=== PATIENT | male | born 1960 | race Caucasian/White ===

== ENCOUNTER 2016-12-14 15:13 | Emergency (ER) | payer OTHER ==
[~2016-12-14] VITALS: Ht 170.2 cm; Wt 81.3 kg
[~2016-12-14 15:13] MED LIST: ADULT LOW DOSE81 M1 PO; ADVIL200 MG PO; AMLODIPINE BESY10 MG PO; APRESOLINE10 MG PO; APRESOLINE25 MG PO; ASPIR 8181 M1 PO; ASPIR-LOW81 MG PO; Aspirin E.C. PO; BAYER CHEWABLE81 MG PO; CARVEDILOL12.5 MG PO; CARVEDILOL25 MG PO; CEFTIN500 MG PO; CENTRUM SILVER1 EAC3 PO; CLEOCIN300 MG PO; CLOPIDOGREL75 MG PO; COREG12.5 M1 PO; COREG25 M1 PO; Coreg PO; DAILY VALUE1 EACH PO; DYNAPEN500 MG PO; ENOXAPARIN40 MG/0.4 SC; FERROUS SULFAT325 MG PO; FLAGYL500 MG PO; FLOMAX0.4 MG PO; FUROSEMIDE40 MG PO; GLIPIZIDE10 MG PO; GLIPIZIDE5 MG PO; GLUCOTROL5 MG PO; Glucotrol PO; Glucotrol XL PO; HEPARIN SO5000 UNITS SC; HYDRALAZINE HCL25 MG PO; IMDUR30 MG PO; IMDUR60 MG PO; IMODIUM MS REL1 EACH PO; IRON325 MG PO; ISOSORBIDE MONO30 MG PO; Imdur PO; K-DUR20 MEQ PO; K-Dur PO; KETOCONAZOLE60 GM TP; KLOR-CON 88 MEQ PO; LANTUS 3 M100 UNITS1 SC; LASIX40 MG PO; LEVAQUIN250 MG PO; LEVEMIR FL100 UNIT/1 SC; LEVEMIR FL100 UNITS/ SC; LEVEMIR100 UNIT/2 SC; LISINOPRIL20 MG PO; LISINOPRIL40 MG PO; LISINOPRIL5 MG PO; LO-DOSE ASPIRIN81 M1 PO; LOMOTIL TABLET1 EACH PO; LOPERAMIDE2 MG PO; Lasix PO; Lomotil,Lonox PO; METOCLOPRAMIDE10 MG PO; MULTIVITAMIN1 EAC2 PO; NORVASC10 MG PO; NOVOLOG 10100 UNITS/ SC; NOVOLOG PE100 UNITS/ SC; PANTOPRAZOLE SO40 MG PO; PLAVIX75 MG PO; POTASSIUM-9999 MG PO; PRAVACHOL40 MG PO; PRAVASTATIN SOD40 MG PO; PRESERVISION T1 EACH PO; PRILOSEC20 MG PO; PROTONIX40 MG PO; Protonix PO; ROCEPHIN1 GM/50 ML IV; ROXICODONE5 MG PO; SENNA-TIME S T1 EACH PO; SILVADENE20 GM TP; SODIUM BICARBO325 MG PO; ST. JOSEPH ASPI81 MG PO; TAMSULOSIN HCL0.4 MG PO; TYLENOL REGULA325 MG PO; Tylenol Regular Stre PO; VITAMIN D-3 401 EACH PO; VITAMIN D3400 UNI1 PO; VITAMIN D400 UNI1 PO; VITAMIN D400 UNIT PO; ZESTRIL2.5 MG PO; ZESTRIL5 MG PO; Zestril,Prinivil PO
[2016-12-14 16:20] LABS: HEMATOCRIT 37.2 % (38.0-50.0); MCH 30.7 PG (29.0-34.0); MCHC 33.9 G/DL (30.0-36.0); MCV 90.5 FL (86-99); MEAN PLAT.VOLUME 9.7 uM^3 (9.0-12.4); PLATELET COUNT 217 K/uL (156-360); RBC DIS.WIDTH-SD 44.8 % (39-53); RED BLOOD COUNT 4.11 M/uL (4.00-5.50); WHITE BLOOD COUNT 5.2 K/uL (4.1-10.2)
[2016-12-14 16:36] LABS: CHLORIDE 109 mEq/L (99-109); POTASSIUM 3.3 mEq/L (3.7-5.4); SODIUM 142 mEq/L (136-147)
[2016-12-14 16:38] LABS: GLUCOSE 141 mg/dL (70-99)
[2016-12-14 16:39] LABS: ANION GAP 13 MEQ/L (2-14)
[2016-12-14 16:40] LABS: TOTAL BILIRUBIN 0.7 mg/dL (0.0-1.0)
[2016-12-14 16:41] LABS: ALKALINE PHOSPHATASE 72 IU/L (3-129)
[2016-12-14 16:42] LABS: GFR ESTIMATE (CALCULATED) > 59 mL/min/
[2016-12-14 16:43] LABS: UREA NITROGEN (BUN) 16 mg/dL (9-23)
[2016-12-14 16:45] LABS: LIPASE 14 U/L (1.0-51.0)
[2016-12-14 17:05] LABS: ADD MIUA? YES; BILIRUBIN NEGATIVE; BLOOD NEGATIVE; COLOR YELLOW ((YELLOW)); GLUCOSE (STRIP) NEGATIVE; KETONES NEGATIVE; LEUKOCYTES NEGATIVE; NITRITE NEGATIVE; PROTEIN (STRIP) 30; SPECIFIC GRAVITY 1.026 (1.000-1.030)
[2016-12-14 18:13] LABS: BACTERIA NONE SEEN; EPITHELIAL CELLS RARE; MUCUS NONE SEEN; RED BLOOD CELLS NONE SEEN /HPF (0-5); UCUL ADDED? NO; WHITE BLOOD CELLS NONE SEEN /HPF (0-5)
[2016-12-14 18:14] LABS: CASTS NONE SEEN /LPF; CRYSTALS PRESENT; URIC ACID CRYSTALS 1+
[2016-12-14] MEDS ORDERED: CIPRO500 MG PO (21:38)
[2016-12-14] MEDS ORDERED: FLAGYL500 MG PO (21:38)
[2016-12-14] MEDS ORDERED: ZOFRAN ODT4 MG PO (21:38)
[2016-12-14] MEDS ORDERED: PERCOCET 5/31 TABLET PO (21:38)
[2016-12-14 21:53] VITALS: BP 157/70
== END 2016-12-14 21:53 | disposition home or self-care (01) ==
LOC: RME 15:13 → EME 15:13 → RME 21:53
DX: K52.9 Noninfective gastroenteritis and colitis, unspecified (principal); R11.10 Vomiting, unspecified; Z85.038 Personal history of other malignant neoplasm of large intestine; E11.9 Type 2 diabetes mellitus without complications; E78.5 Hyperlipidemia, unspecified; I69.398 Other sequelae of cerebral infarction; Z89.422 Acquired absence of other left toe(s); Z79.84 Long term (current) use of oral hypoglycemic drugs; Z79.82 Long term (current) use of aspirin
CPT/HCPCS: 74177; 80053; 81003; 83690; 85027; 99281; 99285; J2270; J2405; J7030

== ENCOUNTER 2017-01-12 10:26 | Day surgery (SDC) | payer OTHER ==
[~2017-01-12] VITALS: Ht 170.2 cm; Wt 81.6 kg
[~2017-01-12 10:26] MED LIST changes: +CIPRO500 MG PO; +PERCOCET 5/31 TABLET PO; +ZOFRAN ODT4 MG PO
[2017-01-12] MEDS ORDERED: FLOMAX0.4 MG PO (10:56)
[2017-01-12 10:57] VITALS: BP 190/100
[2017-01-12 11:28] LABS: POINT-OF-CARE METER ID UU14174212
[2017-01-12 12:26] LABS: METH RESISTANT S AUREUS PCR NEGATIVE (NEGATIVE); PROBE CHECK PASS; SPECIMEN PROCESSING CONTROL PASS
[2017-01-12 13:00] VITALS: BP 200/89
[2017-01-12 13:28] VITALS: BP 202/92
[2017-01-12 13:32] VITALS: BP 198/87
[2017-01-12 16:06] LABS: POINT-OF-CARE METER ID UU13113675
[2017-01-12 17:26] VITALS: BP 141/70
== END 2017-01-12 17:40 | disposition home or self-care (01) ==
LOC: SDC 10:26
PROVIDERS: Ophthalmology
PROC: 08B53ZZ Excision of Left Vitreous, Percutaneous Approach (ICD-10-PCS; principal; 2017-01-12)
PROC: 08QF3ZZ Repair Left Retina, Percutaneous Approach (ICD-10-PCS; principal; 2017-01-12)
PROC: 08C Eye, Extirpation (ICD-10-PCS; principal; 2017-01-12)
DX: E11.3522 Type 2 diabetes mellitus with proliferative diabetic retinopathy with traction retinal detachment involving the macula, left eye (principal); H26.9 Unspecified cataract; I11.0 Hypertensive heart disease with heart failure; I50.9 Heart failure, unspecified; E78.5 Hyperlipidemia, unspecified; Z85.038 Personal history of other malignant neoplasm of large intestine; Z82.49 Family history of ischemic heart disease and other diseases of the circulatory system; Z79.82 Long term (current) use of aspirin; Z92.21 Personal history of antineoplastic chemotherapy; Z92.3 Personal history of irradiation; Z86.73 Personal history of transient ischemic attack (TIA), and cerebral infarction without residual deficits
CPT/HCPCS: 82948; 87641; J0360; J0690; J3010; J3300

== ENCOUNTER 2017-02-27 16:27 | Emergency (ER) | payer OTHER ==
[~2017-02-27] VITALS: Ht 170.2 cm; Wt 73.3 kg
[2017-02-27] MEDS ORDERED: LISINOPRIL5 MG PO (19:39)
[2017-02-27] MEDS ORDERED: COREG25 M1 PO (19:39)
[2017-02-27] MEDS ORDERED: HYDRALAZINE HCL25 MG PO (19:39)
[2017-02-27] MEDS ORDERED: ULTRACET1 TABLET PO (19:42)
[2017-02-27] MEDS ORDERED: GLIPIZIDE10 MG PO (19:46)
[2017-02-27] MEDS ORDERED: GLIPIZIDE5 MG PO (19:47)
[2017-02-27 21:16] VITALS: BP 225/108
== END 2017-02-27 21:17 | disposition home or self-care (01) ==
LOC: EME 16:27
DX: M54.5 Low back pain (principal); M25.551 Pain in right hip; W18.30XA Fall on same level, unspecified, initial encounter; Y92.009 Unspecified place in unspecified non-institutional (private) residence as the place of occurrence of the external cause; E11.9 Type 2 diabetes mellitus without complications; E78.5 Hyperlipidemia, unspecified; I10 Essential (primary) hypertension; Z87.442 Personal history of urinary calculi; Z86.73 Personal history of transient ischemic attack (TIA), and cerebral infarction without residual deficits; Z85.038 Personal history of other malignant neoplasm of large intestine; Z93.3 Colostomy status
CPT/HCPCS: 72100; 73502; 99281; 99285

== ENCOUNTER 2017-03-29 16:16 | Observation (INO) | payer OTHER ==
[~2017-03-29] VITALS: Ht 170.2 cm; Wt 75.0 kg
[~2017-03-29 16:16] MED LIST changes: +ULTRACET1 TABLET PO
[2017-03-29 17:28] LABS: HEMATOCRIT 40.4 % (38.0-50.0); MCH 30.7 PG (29.0-34.0); MCHC 34.2 G/DL (30.0-36.0); MCV 89.8 FL (86-99); PLATELET COUNT 225 K/uL (156-360); RBC DIS.WIDTH-CV 13.6 % (11.8-14.6); RBC DIS.WIDTH-SD 44.5 % (39-53)
[2017-03-29 17:42] LABS: CHLORIDE 108 mEq/L (99-109); POTASSIUM 4.2 mEq/L (3.7-5.4); SODIUM 142 mEq/L (136-147)
[2017-03-29 17:43] LABS: D-DIMER ELISA 0.36 mg/L FEU (< 0.57)
[2017-03-29 17:44] LABS: GLUCOSE 178 mg/dL (70-99)
[2017-03-29 17:45] LABS: ANION GAP 12 MEQ/L (2-14)
[2017-03-29 17:48] LABS: GFR ESTIMATE (CALCULATED) > 59 mL/min/; UREA NITROGEN (BUN) 16 mg/dL (9-23)
[2017-03-29 17:54] LABS: TROP-I INTERPRETATION NEGATIVE; TROPONIN-I 0.02 ng/mL (0.0-0.30)
[2017-03-29] MEDS ORDERED: TAMSULOSIN HCL0.4 MG PO (20:52)
[2017-03-30] VITALS (7 sets, daily range): BP systolic 157–200; BP diastolic 80–106
[2017-03-30 02:32] LABS: TROP-I INTERPRETATION NEGATIVE; TROPONIN-I 0.03 ng/mL (0.0-0.30)
[2017-03-30 06:54] LABS: METH RESISTANT S AUREUS PCR NEGATIVE (NEGATIVE); PROBE CHECK PASS; SPECIMEN PROCESSING CONTROL PASS
[2017-03-30 08:48] LABS: POINT-OF-CARE METER ID UU14162513
[2017-03-30 08:50] LABS: TROP-I INTERPRETATION NEGATIVE; TROPONIN-I 0.02 ng/mL (0.0-0.30)
[2017-03-30 09:05] LABS: HDL CHOLESTEROL 28 MG/DL (Desirable>=40); LDL CHOLESTEROL 103 mg/dL (Desirable<100); NON-HDL CHOLESTEROL 131 mg/dL (Desirable<160); TOTAL CHOLESTEROL 159 mg/dL (Desirable<200); TRIGLYCERIDES 140 MG/DL (Normal: <150)
[2017-03-30 12:33] LABS: POINT-OF-CARE METER ID UU14162513
[2017-03-30 15:43] LABS: POINT-OF-CARE METER ID UU14162513
[2017-03-30 18:36] LABS: POINT-OF-CARE METER ID UU14162513
[2017-03-30 20:50] LABS: POINT-OF-CARE METER ID UU14162513
[2017-03-31] VITALS: BP 179/84
[2017-03-31 03:30] VITALS: BP 176/77
[2017-03-31 07:45] VITALS: BP 186/87
[2017-03-31 09:05] LABS: POINT-OF-CARE METER ID UU14162513
[2017-03-31] MEDS ORDERED: LISINOPRIL10 MG PO (10:50)
[2017-03-31] MEDS ORDERED: PANTOPRAZOLE SO40 MG PO (10:50)
[2017-03-31] MEDS ORDERED: APRESOLINE50 MG PO ×2 (10:50→11:32)
[2017-03-31 11:08] VITALS: BP 173/82
[2017-03-31 12:56] LABS: POINT-OF-CARE METER ID UU14162513
== END 2017-03-31 15:24 | disposition home health service (06) ==
LOC: EME 16:16 → EDOF 21:35 → 5WEST 21:35 → EDOF 21:35 → 5WEST 03-30 00:04
PROVIDERS: Hospitalist; Physician Assistant Medical
PROC: 0DB68ZX Excision of Stomach, Via Natural or Artificial Opening Endoscopic, Diagnostic (ICD-10-PCS; principal; 2017-03-30)
DX: K29.70 Gastritis, unspecified, without bleeding (principal); I16.0 Hypertensive urgency; I13.0 Hypertensive heart and chronic kidney disease with heart failure and stage 1 through stage 4 chronic kidney disease, or unspecified chronic kidney disease; N18.3 Chronic kidney disease, stage 3 (moderate); I50.30 Unspecified diastolic (congestive) heart failure; E11.40 Type 2 diabetes mellitus with diabetic neuropathy, unspecified; E11.22 Type 2 diabetes mellitus with diabetic chronic kidney disease; E11.21 Type 2 diabetes mellitus with diabetic nephropathy; E11.649 Type 2 diabetes mellitus with hypoglycemia without coma; I42.9 Cardiomyopathy, unspecified; R33.9 Retention of urine, unspecified; I25.10 Atherosclerotic heart disease of native coronary artery without angina pectoris; E78.5 Hyperlipidemia, unspecified; Z86.14 Personal history of Methicillin resistant Staphylococcus aureus infection; I69.354 Hemiplegia and hemiparesis following cerebral infarction affecting left non-dominant side; I69.392 Facial weakness following cerebral infarction; E55.9 Vitamin D deficiency, unspecified; E21.3 Hyperparathyroidism, unspecified; E66.9 Obesity, unspecified
CPT/HCPCS: 71020; 71275; 74174; 80048; 80061; 82948; 84484; 85027; 85379; 87641; 88305; 88342 TC; 93005; 99281; 99285; G0378; J0360; J1650; J7030; J7042

== ENCOUNTER 2017-04-20 15:12 | Emergency (ER) | payer OTHER ==
[~2017-04-20] VITALS: Ht 170.2 cm; Wt 73.1 kg
[~2017-04-20 15:12] MED LIST changes: +APRESOLINE50 MG PO; +LISINOPRIL10 MG PO
[2017-04-20 16:43] LABS: CHLORIDE 106 mEq/L (99-109); HEMATOCRIT 41.2 % (38.0-50.0); MCH 30.8 PG (29.0-34.0); MCHC 33.5 G/DL (30.0-36.0); MEAN PLAT.VOLUME 9.3 uM^3 (9.0-12.4); PLATELET COUNT 234 K/uL (156-360); RBC DIS.WIDTH-CV 13.7 % (11.8-14.6); RBC DIS.WIDTH-SD 46.5 % (39-53); RED BLOOD COUNT 4.48 M/uL (4.00-5.50); WHITE BLOOD COUNT 9.4 K/uL (4.1-10.2)
[2017-04-20 16:44] LABS: POTASSIUM 3.3 mEq/L (3.7-5.4); SODIUM 142 mEq/L (136-147)
[2017-04-20 16:45] LABS: GLUCOSE 151 mg/dL (70-99)
[2017-04-20 16:47] LABS: ANION GAP 12 MEQ/L (2-14)
[2017-04-20 16:49] LABS: GFR ESTIMATE (CALCULATED) > 59 mL/min/
[2017-04-20 16:50] LABS: UREA NITROGEN (BUN) 23 mg/dL (9-23)
[2017-04-20 18:06] LABS: ADD MIUA? NO; BILIRUBIN NEGATIVE; BLOOD NEGATIVE; COLOR STRAW ((YELLOW)); GLUCOSE (STRIP) 50; KETONES NEGATIVE; LEUKOCYTES NEGATIVE; NITRITE NEGATIVE; PROTEIN (STRIP) 30; SPECIFIC GRAVITY 1.013 (1.000-1.030); UCUL ADDED? NO; UROBILINOGEN 0.2 MG/DL (0.2-1.0)
[2017-04-20 20:13] VITALS: BP 192/95
== END 2017-04-20 19:59 | disposition home or self-care (01) ==
LOC: EME 15:12
PROVIDERS: Physician Assistant Medical
DX: I10 Essential (primary) hypertension (principal); E11.9 Type 2 diabetes mellitus without complications; E78.5 Hyperlipidemia, unspecified; Z86.73 Personal history of transient ischemic attack (TIA), and cerebral infarction without residual deficits; Z87.442 Personal history of urinary calculi
CPT/HCPCS: 80048; 81003; 85027; 99281; 99283

== ENCOUNTER 2017-05-30 15:14 | Emergency (ER) | payer OTHER ==
[~2017-05-30] VITALS: Ht 170.2 cm; Wt 74.5 kg
[2017-05-30 16:04] LABS: HEMATOCRIT 40.9 % (38.0-50.0); MCH 30.8 PG (29.0-34.0); MCHC 34.2 G/DL (30.0-36.0); MCV 89.9 FL (86-99); MEAN PLAT.VOLUME 9.4 uM^3 (9.0-12.4); PLATELET COUNT 182 K/uL (156-360); RBC DIS.WIDTH-CV 12.8 % (11.8-14.6); RBC DIS.WIDTH-SD 42.6 % (39-53); RED BLOOD COUNT 4.55 M/uL (4.00-5.50); WHITE BLOOD COUNT 5.6 K/uL (4.1-10.2)
[2017-05-30 16:13] LABS: CHLORIDE 108 mEq/L (99-109); POTASSIUM 3.1 mEq/L (3.7-5.4); SODIUM 141 mEq/L (136-147)
[2017-05-30 16:15] LABS: GLUCOSE 147 mg/dL (70-99)
[2017-05-30 16:16] LABS: ANION GAP 9 MEQ/L (2-14)
[2017-05-30 16:19] LABS: GFR ESTIMATE (CALCULATED) > 59 mL/min/; UREA NITROGEN (BUN) 15 mg/dL (9-23)
[2017-05-30 17:23] LABS: TROP-I INTERPRETATION NEGATIVE; TROPONIN-I < 0.01 ng/mL (0.0-0.30)
[2017-05-30 18:22] LABS: ADD MIUA? YES; BILIRUBIN NEGATIVE; BLOOD LARGE; COLOR YELLOW ((YELLOW)); GLUCOSE (STRIP) NEGATIVE; KETONES NEGATIVE; LEUKOCYTES NEGATIVE; NITRITE NEGATIVE; PROTEIN (STRIP) 100; SPECIFIC GRAVITY 1.011 (1.000-1.030); UROBILINOGEN 0.2 MG/DL (0.2-1.0)
[2017-05-30 18:29] LABS: BACTERIA NONE SEEN /HPF; EPITHELIAL CELLS RARE /HPF; HYALINE CASTS 0-5 /LPF; MUCUS TRACE /LPF; RED BLOOD CELLS 30-40 /HPF (0-5); WHITE BLOOD CELLS 0-5 /HPF (0-5)
[2017-05-30 20:10] VITALS: BP 198/102
== END 2017-05-30 20:13 | disposition home or self-care (01) ==
LOC: EME 15:14
PROVIDERS: Emergency Medicine
DX: R53.1 Weakness (principal); I10 Essential (primary) hypertension; W01.0XXA Fall on same level from slipping, tripping and stumbling without subsequent striking against object, initial encounter; Z91.14 Patient's other noncompliance with medication regimen; E78.5 Hyperlipidemia, unspecified; E11.9 Type 2 diabetes mellitus without complications; Z86.73 Personal history of transient ischemic attack (TIA), and cerebral infarction without residual deficits; Z87.442 Personal history of urinary calculi; Z79.84 Long term (current) use of oral hypoglycemic drugs
CPT/HCPCS: 71020; 80048; 81003; 84484; 85027; 87086; 93005; 99281; 99285; J7030

== ENCOUNTER 2017-06-02 20:34 | Observation (INO) | payer OTHER ==
[~2017-06-02] VITALS: Ht 170.2 cm; Wt 72.7 kg
[2017-06-02 21:06] LABS: HEMATOCRIT 38.4 % (38.0-50.0); MCH 30.6 PG (29.0-34.0); MCHC 34.4 G/DL (30.0-36.0); MCV 89.1 FL (86-99); MEAN PLAT.VOLUME 9.6 uM^3 (9.0-12.4); PLATELET COUNT 177 K/uL (156-360); RBC DIS.WIDTH-CV 12.5 % (11.8-14.6); RBC DIS.WIDTH-SD 41.5 % (39-53); RED BLOOD COUNT 4.31 M/uL (4.00-5.50); WHITE BLOOD COUNT 5.5 K/uL (4.1-10.2)
[2017-06-02 21:16] LABS: CHLORIDE 109 mEq/L (99-109); SODIUM 143 mEq/L (136-147)
[2017-06-02 21:18] LABS: GLUCOSE 165 mg/dL (70-99)
[2017-06-02 21:20] LABS: ANION GAP 9 MEQ/L (2-14)
[2017-06-02 21:22] LABS: GFR ESTIMATE (CALCULATED) > 59 mL/min/
[2017-06-02 21:23] LABS: UREA NITROGEN (BUN) 12 mg/dL (9-23)
[2017-06-02 21:27] LABS: TROP-I INTERPRETATION NEGATIVE; TROPONIN-I < 0.01 ng/mL (0.0-0.30)
[2017-06-03 00:51] LABS: MAGNESIUM 1.5 mg/dL (1.3-2.7)
[2017-06-03 00:54] LABS: TOTAL BILIRUBIN 1.4 mg/dL (0.0-1.0)
[2017-06-03 00:55] LABS: ALKALINE PHOSPHATASE 69 IU/L (3-129)
[2017-06-03 00:58] LABS: DIRECT BILIRUBIN 0.5 mg/dL (0.0-0.3)
[2017-06-03 01:01] LABS: INTER. NORMALIZED RATIO 1.2; PROTHROMBIN TIME 11.9 (9.2-11.2); PTT 33.6 (25-32)
[2017-06-03] MEDS ORDERED: HYDRALAZINE HCL25 MG PO (01:11)
[2017-06-03] MEDS ORDERED: LISINOPRIL20 MG PO (01:12)
[2017-06-03 04:07] VITALS: BP 199/101
[2017-06-03 06:33] LABS: TROP-I INTERPRETATION NEGATIVE; TROPONIN-I 0.02 ng/mL (0.0-0.30)
[2017-06-03 06:34] LABS: HDL CHOLESTEROL 30 MG/DL (Desirable>=40); LDL CHOLESTEROL 85 mg/dL (Desirable<100); NON-HDL CHOLESTEROL 115 mg/dL (Desirable<160); TOTAL CHOLESTEROL 145 mg/dL (Desirable<200); TRIGLYCERIDES 152 MG/DL (Normal: <150)
[2017-06-03 07:53] VITALS: BP 196/88
[2017-06-03 08:54] LABS: ALKALINE PHOSPHATASE 62 IU/L (3-129); ANION GAP 12 MEQ/L (2-14); CHLORIDE 109 MEQ/L (99-109); GFR ESTIMATE (CALCULATED) > 59 mL/min/; POTASSIUM 3.6 MEQ/L (3.7-5.4); SODIUM 143 MEQ/L (136-147); TOTAL BILIRUBIN 0.8 MG/DL (0.0-1.0); UREA NITROGEN (BUN) 12 mg/dL (9-23)
[2017-06-03 08:57] LABS: GLUCOSE 114 mg/dL (70-99)
[2017-06-03 09:05] VITALS: BP 180/78
[2017-06-03 11:30] LABS: TROP-I INTERPRETATION NEGATIVE; TROPONIN-I 0.02 ng/mL (0.0-0.30)
[2017-06-03 11:31] VITALS: BP 198/100
[2017-06-03 15:35] VITALS: BP 162/80
[2017-06-03 17:30] LABS: POINT-OF-CARE METER ID UU14162513
[2017-06-03 21:00] VITALS: BP 193/87
[2017-06-04 00:57] VITALS: BP 164/75
[2017-06-04 07:05] VITALS: BP 177/81
[2017-06-04 07:58] LABS: POINT-OF-CARE METER ID UU13113831
[2017-06-04 11:24] VITALS: BP 143/78
[2017-06-04] MEDS ORDERED: AMOX TR-K CLV1 EAC4 PO (12:22)
[2017-06-04 12:59] LABS: POINT-OF-CARE METER ID UU13113831
== END 2017-06-04 14:16 | disposition home or self-care (01) ==
LOC: EME 20:34 → EDOF 06-03 01:56 → 5WEST 06-03 03:08
PROVIDERS: Physician Assistant Medical; Student in an Organized Health Care Education/Training Program
DX: R07.89 Other chest pain (principal); I12.9 Hypertensive chronic kidney disease with stage 1 through stage 4 chronic kidney disease, or unspecified chronic kidney disease; E11.22 Type 2 diabetes mellitus with diabetic chronic kidney disease; E11.65 Type 2 diabetes mellitus with hyperglycemia; N18.3 Chronic kidney disease, stage 3 (moderate); E80.6 Other disorders of bilirubin metabolism; K81.0 Acute cholecystitis; E87.6 Hypokalemia; I25.10 Atherosclerotic heart disease of native coronary artery without angina pectoris; I69.354 Hemiplegia and hemiparesis following cerebral infarction affecting left non-dominant side; Z85.048 Personal history of other malignant neoplasm of rectum, rectosigmoid junction, and anus; K29.50 Unspecified chronic gastritis without bleeding; Z79.82 Long term (current) use of aspirin; Z79.84 Long term (current) use of oral hypoglycemic drugs
CPT/HCPCS: 71020; 76705; 80048; 80053; 80061; 80076; 82948; 83735; 84100; 84484; 85027; 85610; 85730; 93005; 99281; 99285; G0378; J0360; J1650

== ENCOUNTER 2017-08-08 21:24 | Emergency (ER) | payer OTHER ==
[~2017-08-08] VITALS: Ht 167.6 cm; Wt 72.9 kg
[~2017-08-08 21:24] MED LIST changes: +AMOX TR-K CLV1 EAC4 PO
[2017-08-08 23:16] LABS: EOSINOPHIL (%) 2.9 % (0-5); EOSINOPHIL COUNT 0.2 K/uL (0-0.3); HEMATOCRIT 38.3 % (38.0-50.0); IMMATURE GRANULOCYTE (%) 0.3 % (0.0-0.7); INSTRUMENT ABS NEUTROPHIL CT 4.2 K/uL; LYMPHOCYTE COUNT 0.9 K/uL (1.0-2.8); MCH 30.8 PG (29.0-34.0); MCHC 34.2 G/DL (30.0-36.0); MCV 89.9 FL (86-99); MEAN PLAT.VOLUME 9.4 uM^3 (9.0-12.4); MONOCYTE (%) 9.7 % (3-12); MONOCYTE COUNT 0.6 K/uL (0-0.8); NEUTROPHIL (%) 72.1 % (45-76); NEUTROPHIL COUNT 4.2 K/uL (1.8-6.4); PLATELET COUNT 216 K/uL (156-360); RBC DIS.WIDTH-CV 13.2 % (11.8-14.6); RBC DIS.WIDTH-SD 43.4 % (39-53); RED BLOOD COUNT 4.26 M/uL (4.00-5.50); WHITE BLOOD COUNT 5.8 K/uL (4.1-10.2)
[2017-08-08 23:26] LABS: CHLORIDE 110 mEq/L (99-109); POTASSIUM 3.8 mEq/L (3.7-5.4); SODIUM 144 mEq/L (136-147)
[2017-08-08 23:27] LABS: GLUCOSE 119 mg/dL (70-99)
[2017-08-08 23:29] LABS: ANION GAP 12 MEQ/L (2-14)
[2017-08-08 23:31] LABS: GFR ESTIMATE (CALCULATED) > 59 mL/min/
[2017-08-08 23:32] LABS: UREA NITROGEN (BUN) 20 mg/dL (9-23)
[2017-08-08 23:37] LABS: TROP-I INTERPRETATION NEGATIVE; TROPONIN-I < 0.01 ng/mL (0.0-0.30)
[2017-08-09] MEDS ORDERED: PREDNISONE50 MG PO (00:05)
[2017-08-09 00:34] VITALS: BP 148/77
== END 2017-08-09 00:34 | disposition home or self-care (01) ==
LOC: EME → EDBD 21:24 → EME 08-09 00:34
PROVIDERS: Emergency Medicine
DX: R06.02 Shortness of breath (principal); I10 Essential (primary) hypertension; E78.5 Hyperlipidemia, unspecified; E11.9 Type 2 diabetes mellitus without complications; I69.354 Hemiplegia and hemiparesis following cerebral infarction affecting left non-dominant side; Z79.84 Long term (current) use of oral hypoglycemic drugs; Z79.82 Long term (current) use of aspirin; Z85.038 Personal history of other malignant neoplasm of large intestine; Z87.442 Personal history of urinary calculi
CPT/HCPCS: 71010; 80048; 84484; 85025; 93005; 99281; 99284

== ENCOUNTER 2017-09-18 14:03 | Emergency (ER) | payer OTHER ==
[~2017-09-18] VITALS: Ht 165.1 cm; Wt 72.0 kg
[~2017-09-18 14:03] MED LIST changes: +PREDNISONE50 MG PO
[2017-09-18 16:18] LABS: EOSINOPHIL (%) 2.5 % (0-5); EOSINOPHIL COUNT 0.1 K/uL (0-0.3); HEMATOCRIT 39.2 % (38.0-50.0); IMMATURE GRANULOCYTE (%) 0.4 % (0.0-0.7); INSTRUMENT ABS NEUTROPHIL CT 3.7 K/uL; LYMPHOCYTE COUNT 0.8 K/uL (1.0-2.8); MCH 30.3 PG (29.0-34.0); MCHC 33.7 G/DL (30.0-36.0); MCV 89.9 FL (86-99); MEAN PLAT.VOLUME 9.8 uM^3 (9.0-12.4); MONOCYTE COUNT 0.5 K/uL (0-0.8); NEUTROPHIL COUNT 3.7 K/uL (1.8-6.4); PLATELET COUNT 159 K/uL (156-360); RBC DIS.WIDTH-CV 13.2 % (11.8-14.6); RBC DIS.WIDTH-SD 43.6 % (39-53); RED BLOOD COUNT 4.36 M/uL (4.00-5.50); WHITE BLOOD COUNT 5.1 K/uL (4.1-10.2)
[2017-09-18 16:32] LABS: CHLORIDE 106 mEq/L (99-109); POTASSIUM 3.4 mEq/L (3.7-5.4)
[2017-09-18 16:33] LABS: SODIUM 142 mEq/L (136-147)
[2017-09-18 16:34] LABS: GLUCOSE 165 mg/dL (70-99)
[2017-09-18 16:36] LABS: ANION GAP 11 MEQ/L (2-14)
[2017-09-18 16:38] LABS: GFR ESTIMATE (CALCULATED) > 59 mL/min/
[2017-09-18 16:39] LABS: UREA NITROGEN (BUN) 12 mg/dL (9-23)
[2017-09-18] MEDS ORDERED: LISINOPRIL20 MG PO (16:49)
[2017-09-18 17:15] VITALS: BP 171/93
== END 2017-09-18 17:17 | disposition home or self-care (01) ==
LOC: EME 14:03
PROVIDERS: Emergency Medicine
DX: I10 Essential (primary) hypertension (principal); E78.5 Hyperlipidemia, unspecified; E11.9 Type 2 diabetes mellitus without complications; Z79.84 Long term (current) use of oral hypoglycemic drugs; Z86.73 Personal history of transient ischemic attack (TIA), and cerebral infarction without residual deficits; Z85.038 Personal history of other malignant neoplasm of large intestine; Z90.49 Acquired absence of other specified parts of digestive tract; Z89.422 Acquired absence of other left toe(s); Z79.82 Long term (current) use of aspirin
CPT/HCPCS: 80048; 85025; 99281; 99285

== ENCOUNTER 2017-12-05 17:14 | Emergency (ER) | payer OTHER ==
[~2017-12-05] VITALS: Ht 170.2 cm; Wt 66.3 kg
[2017-12-05 20:24] LABS: HEMATOCRIT 42.6 % (38.0-50.0); HEMOGLOBIN 14.5 G/DL (12.5-16.6); MCH 30.4 PG (29.0-34.0); MCV 89.3 FL (86-99); PLATELET COUNT 144 K/uL (156-360); RBC DIS.WIDTH-CV 13.1 % (11.8-14.6); RBC DIS.WIDTH-SD 43.2 % (39-53); RED BLOOD COUNT 4.77 M/uL (4.00-5.50)
[2017-12-05 20:38] LABS: CHLORIDE 110 mEq/L (99-109); POTASSIUM 3.4 mEq/L (3.7-5.4); SODIUM 140 mEq/L (136-147)
[2017-12-05 20:39] LABS: GLUCOSE 111 mg/dL (70-99)
[2017-12-05 20:43] LABS: CREATININE 0.8 mg/dL (0.6-1.3); GFR ESTIMATE (CALCULATED) > 59 mL/min/ (58.99-99999)
[2017-12-05 20:44] LABS: UREA NITROGEN (BUN) 14 mg/dL (9-23)
[2017-12-05] MEDS ORDERED: CARVEDILOL25 MG PO (22:22)
[2017-12-05] MEDS ORDERED: HYDRALAZINE HCL25 MG PO (22:22)
[2017-12-05 22:56] VITALS: BP 202/78
== END 2017-12-05 22:58 | disposition home or self-care (01) ==
LOC: EME 17:14
PROVIDERS: Physician Assistant Medical
DX: S09.90XA Unspecified injury of head, initial encounter (principal); I11.0 Hypertensive heart disease with heart failure; E78.5 Hyperlipidemia, unspecified; I69.354 Hemiplegia and hemiparesis following cerebral infarction affecting left non-dominant side; W01.0XXA Fall on same level from slipping, tripping and stumbling without subsequent striking against object, initial encounter; Y93.01 Activity, walking, marching and hiking; Z79.84 Long term (current) use of oral hypoglycemic drugs; Z79.82 Long term (current) use of aspirin; Z87.442 Personal history of urinary calculi; Z85.038 Personal history of other malignant neoplasm of large intestine
CPT/HCPCS: 70450; 72125; 73502; 80048; 85027; 99281; 99284

== ENCOUNTER 2017-12-16 04:24 | Emergency (ER) | payer OTHER ==
[~2017-12-16] VITALS: Ht 170.2 cm; Wt 69.6 kg
[2017-12-16 05:45] LABS: CHLORIDE 109 mEq/L (99-109); POTASSIUM 3.5 mEq/L (3.7-5.4); SODIUM 143 mEq/L (136-147)
[2017-12-16 05:47] LABS: GLUCOSE 96 mg/dL (70-99)
[2017-12-16 05:48] LABS: HEMATOCRIT 37.9 % (38.0-50.0); HEMOGLOBIN 13.1 G/DL (12.5-16.6); MCH 30.6 PG (29.0-34.0); MCHC 34.6 G/DL (30.0-36.0); MCV 88.6 FL (86-99); RBC DIS.WIDTH-CV 13.1 % (11.8-14.6); RBC DIS.WIDTH-SD 42.5 % (39-53); RED BLOOD COUNT 4.28 M/uL (4.00-5.50); WHITE BLOOD COUNT 6.3 K/uL (4.1-10.2)
[2017-12-16 05:51] LABS: CREATININE 0.8 mg/dL (0.6-1.3); GFR ESTIMATE (CALCULATED) > 59 mL/min/ (58.99-99999); UREA NITROGEN (BUN) 18 mg/dL (9-23)
[2017-12-16 05:57] LABS: PLATELET COUNT 217 K/uL (156-360); TROP-I INTERPRETATION NEGATIVE; TROPONIN-I 0.01 ng/mL (0.0-0.30)
[2017-12-16 06:00] VITALS: BP 168/87
[2017-12-16] MEDS ORDERED: TESSALON PERLE100 MG PO (06:24)
[2017-12-16] MEDS ORDERED: VENTOLIN HFA18 GM IH (06:24)
== END 2017-12-16 06:34 | disposition home or self-care (01) ==
LOC: EME 04:24
DX: J06.9 Acute upper respiratory infection, unspecified (principal); E11.9 Type 2 diabetes mellitus without complications; E78.5 Hyperlipidemia, unspecified; I10 Essential (primary) hypertension; Z87.442 Personal history of urinary calculi; Z86.73 Personal history of transient ischemic attack (TIA), and cerebral infarction without residual deficits; Z85.038 Personal history of other malignant neoplasm of large intestine; Z79.82 Long term (current) use of aspirin
CPT/HCPCS: 71046; 80048; 84484; 85027; 93005; 94640

== ENCOUNTER 2018-02-11 10:07 | Emergency (ER) | payer OTHER ==
[~2018-02-11] VITALS: Ht 177.8 cm; Wt 73.4 kg
[~2018-02-11 10:07] MED LIST changes: +TESSALON PERLE100 MG PO; +VENTOLIN HFA18 GM IH
[2018-02-11 12:56] LABS: APPEARANCE CLEAR ((CLEAR)); BILIRUBIN NEGATIVE; BLOOD NEGATIVE; COLOR YELLOW ((YELLOW)); GLUCOSE (STRIP) NEGATIVE; KETONES NEGATIVE; LEUKOCYTES NEGATIVE; NITRITE NEGATIVE; PROTEIN (STRIP) 30; SPECIFIC GRAVITY 1.018 (1.000-1.030); UCUL ADDED? NO
[2018-02-11 14:37] VITALS: BP 166/83
== END 2018-02-11 14:39 | disposition home or self-care (01) ==
LOC: EME 10:07
PROVIDERS: Emergency Medicine
DX: M51.36 Other intervertebral disc degeneration, lumbar region (principal); S09.90XA Unspecified injury of head, initial encounter; W19.XXXA Unspecified fall, initial encounter; I50.9 Heart failure, unspecified; I11.0 Hypertensive heart disease with heart failure; E78.5 Hyperlipidemia, unspecified; E11.9 Type 2 diabetes mellitus without complications; I69.354 Hemiplegia and hemiparesis following cerebral infarction affecting left non-dominant side; Z79.82 Long term (current) use of aspirin
CPT/HCPCS: 70450; 72131; 81003; 99281; 99284